=== PATIENT | female | born 2005 | race Caucasian/White ===

== ENCOUNTER 2025-03-07 08:53 | Outpatient (AMB) | payer OTHER, SELFPAY ==
--- NOTE | 2025-03-07 08:56 | MHC.PC.OV ---
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 She is transferring from [place]. Denies any significant past medical history. Denies any acute concerns today. Regulatory Consultant: She states for the last 6 months she has noticed a change in her period. She states that she has a regular cycle but a change in the amount of bleeding. She has to change a tampon every 2 hrs. She states she is bleeding through her clothes which is new for her. She states this bleeding lasts for 5 days overall, periods last 7 days. She does not have a dental coordinator. States that she has never had a pelvic exam. She denies any increased pelvic pain from baseline when she has her menses. She says that she has what she would consider typical cramping and discomfort. She is just concerned because she has never had so much bleeding and it has now been 6 months of persistent bleeding like this. She has never been sexually active. Denies any significant family history. 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 [facility] Surgical History (Updated 03/07/25 @ 09:06 by Deja Cook CMA) No pertinent past surgical history Family History (Updated 03/07/25 @ 09:09 by Deja Cook CMA) Father Asthma Maternal Grandmother HTN (hypertension) Cardiovascular disease Maternal Grandfather High cholesterol Brother Alcoholism Other Substance abuse Social History (Updated 03/07/25 @ 09:10 by Deja Cook CMA) Housing: House Alcohol intake: never Patient Tobacco Use Status: Never used Tobacco e-Cigarette/Vaping Use: Never Used Second Hand Smoke Exposure: No service: No Current occupational status: employed and student Current occupation: [employer] Current occupational exposures/hazards: No Cognitive needs: No Hearing needs: No Vision needs: No Questionnaire PHQ-9 Over the last 2 weeks, how often have you been bothered by any of the following problems? 1. Little interest or pleasure in doing things: not at all 2. Feeling down, depressed, or hopeless: not at all 3. Trouble falling or staying asleep, or sleeping too much: not at all 4. Feeling tired or having little energy: not at all 5. Poor appetite or overeating: not at all 6. Feeling bad about yourself - or that you are a failure or have let yourself or your family down: not at all 7. Trouble concentrating on things, such as reading the newspaper or watching television: not at all 8. Moving or speaking so slowly that other people could have noticed. Or the opposite - being so fidgety or restless that you have been moving around a lot more than usual: not at all 9. Thoughts that you would be better off or of hurting yourself in some way: not at all Total score: 0 Depression Screening Interpretation: Negative Depression Screening Done: Yes 93716 - PHQ-9 Billing: Yes Source: Developed by Drs. Ryan Hodge, Elinor Christiansen, Manjinder Curran and colleagues, with an educational chas from [employer]. Thrive Questionnaire Date Thrive assessed: 03/04/25 I am a: Patient What is your living situation today?: I have a steady place to live Within the past 12 months, did the food you bought not last and you didn't have the money to get more?: Never true Within the past 12 months, did you worry whether your food would run out before you got money to buy more?: Never true Do you have trouble paying for medicines?: No Do you have trouble getting transportation to medical appointments?: No Do you have trouble paying your heating and electricity bill?: No Do you have trouble taking care of your child, family member or friend?: No Do you have trouble with day-to-day activities such as bathing, preparing meals, shopping, managing finances, etc.?: No Are you currently unemployed and looking for a job?: No Are you interested in more education?: No Please select the resources that you would like help with: None Currently or been in a relationship where the following occur: No concerns reported THRIVE Score: 0 AUDIT C Alcohol Use Questionnaire (AUDIT-C) 1. How often do you have a drink containing alcohol?: Never 3. How often do you have six or more drinks on one occasion?: Never Total Score: 0 MELISSA-7 AMB Questionnaire MELISSA-7 Date MELISSA - 7 assessed: 03/07/25 Feeling nervous, anxious, or on edge: 0 = Not at all Not being able to stop or control worryin = Not at all Worrying too much about different things: 0 = Not at all Trouble relaxin = Not at all Being so restless that it is hard to sit still: 0 = Not at all Becoming easily annoyed or irritable: 0 = Not at all Feeling afraid as if something awful might happen: 0 = Not at all Total MELISAS-7 score (0-4 normal; 5-9 mild; 10-14 moderate; 15-21 severe): 0 Source: Developed by Drs. Ryan Hodge, Elnior Christiansen, Manjinder Curran and colleagues, with an educational chas from [employer]. MELISSA-7 Assessment Billing MELISSA-7 Assessment Tool: MELISSA-7 Assessment 19444 Physical exam (Primary Care) Vital Signs: Last Vital Signs Pulse 98 03/07/25 09:01 Resp 14 03/07/25 09:01 BP 114/68 03/07/25 09:01 Pulse Ox 98 03/07/25 09:01 Oxygen Delivery Method Room Air 03/07/25 09:01 BMI result Body Mass Index 24.0 Tobacco/Smoking Status: Tobacco use Status Tobacco use date assessed 03/07/25 03/07/25 08:59 Patient Tobacco Use Status Never used Tobacco 03/07/25 09:10 e-Cigarette/Vaping Use Never Used 03/07/25 09:10 PHQ-9: PHQ-9 Score PHQ-9: Total score 0 03/07/25 08:59 Depression Screening Interpretation: Negative Thrive Assessment: Date of Thrive Assessment Date Thrive assessed 03/04/25 03/07/25 08:59 Currently or been in a relationship where the following occur: No concerns reported Const Orientation/consciousness: patient oriented x3 HENMT Ears: hearing grossly normal bilaterally and TM's normal bilaterally General nose exam: No nasal polyps present Face and sinus: Yes sinuses nontender Mouth: Normal oral and palatal mucosa present Eyes Pupils: Equal, round and reactive pupils present EOM: EOMs intact bilaterally Neck Neck: Yes full ROM and Yes no lymphadenopathy Thyroid: Thyroid normal Chest Chest palpation & inspection: normal inspection of the chest Resp Auscultation: clear to auscultation bilaterally Cardio Rate: regular rate Rhythm: regular rhythm Heart sounds: S1 normal heart sound present and S2 normal heart sound present Peripheral pulses: Peripheral pulses 2+ throughout GI Other: Soft, nontender Auscultation: normal bowel sounds Rectal Exam - Female: deferred General: Yes no CVA tenderness Back/Spine/Pelvis Other: Nontender Back: no CVA tenderness Skin General skin exam: no rashes or lesions noted Neuro General: patient oriented x3, gait normal, CN's II-XI intact bilaterally and deep tendon reflexes 2+ bilaterally Cranial nerves: Yes Equal, round and reactive pupils present Motor exam (neuro): 5/5 motor strength present throughout Sensory Exam: double simultaneous stimulation for sensation normal Coordination: [id number] test normal and Romberg test negative Extrem General: Yes normal to inspection and Yes full ROM Psych Affect: normal affect Attitude: cooperative Thought process: Normal thought process present Thought content: Normal thought content present Insight: Good insight present (Psych) Judgement: Good judgement present (Psych) Coding Level of Care Code New Pt Prev Care 18-39yr([id number] Diagnoses Encounter for routine history and physical examination Z00.00 Menorrhagia with regular cycle N92.0 Additional Codes MELISSA-7 Assessment Billing - MELISSA-7 Assessment Tool: MELISSA-7 Assessment 93397 ([id number]) PHQ-9 - 81796 - PHQ-9 Billing: Yes ([id number]) Assessment & Plan Assessment & Plan (1) Encounter for routine history and physical examination: Code(s): Z00.00 - Encounter for general adult medical examination without abnormal findings Plan: Health maintenance reviewed. Labs ordered. We will follow up pending test results. (2) Menorrhagia with regular cycle: Code(s): N92.0 - Excessive and frequent menstruation with regular cycle Category: Medical Plan: Labs and ultrasound ordered. Referral to Gynecology. Orders: Orders US pelvic and transvaginal Today N92.0 - Excessive and frequent menstruation with regular cycle TSH reflex Free T4 Today N92.0 - Excessive and frequent menstruation with regular cycle, Z00.00 - Encounter for general adult medical examination without abnormal findings Comprehensive [place]. Panel Fast Today N92.0 - Excessive and frequent menstruation with regular cycle, Z00.00 - Encounter for general adult medical examination without abnormal findings Vitamin B12 and Folate Today N92.0 - Excessive and frequent menstruation with regular cycle, Z00.00 - Encounter for general adult medical examination without abnormal findings IRON PROFILE Today N92.0 - Excessive and frequent menstruation with regular cycle, Z00.00 - Encounter for general adult medical examination without abnormal findings Ferritin Today N92.0 - Excessive and frequent menstruation with regular cycle, Z00.00 - Encounter for general adult medical examination without abnormal findings Complete Blood Count Auto Diff Today N92.0 - Excessive and frequent menstruation with regular cycle, Z00.00 - Encounter for general adult medical examination without abnormal findings Lipid Panel Today N92.0 - Excessive and frequent menstruation with regular cycle, Z00.00 - Encounter for general adult medical examination without abnormal findings Referrals [facility] Referral N92.0 - Excessive and frequent menstruation with regular cycle, Z01.419 - Encounter for gynecological examination (general) (routine) without abnormal findings
[2025-03-07 09:01] VITALS: BP 114/68; PULSE 98; RESP 14; O2SAT 98; BMI 24.0
--- OUTSIDE RECORDS SUMMARY | 2025-03-07 09:18 | XMS_ITS | Clinical Summary ---
Author Organization [address] [facility] Address [address] [place] [address] Phone Care Team Providers Care Mainspring Former Name Role Phone Katt Cho MD Primary Care Prov ider Surgical History Surgery Date Site/Laterality Comments WISDOM TOOTH EXTRACTION PROCEDURE: HISTORICAL WISDOM TEETH EXTRACTION Medical History Medical History Date Comments Vascular birthmark DX:Vascular b irthmark; COMMENT: right wrist Family History Medical History Relation Name Comments Allergies Father FOOD; asthma Diabetes Maternal Grandfather htn Relation Name Status Comments Brother Alive 05/17/02 MOISES Father Alive 05/16/70 Maternal Grandfather Alive Maternal Grandmother Alive Mother Alive 10/09/74 Paternal Grandfather Alive Paternal Grandmother Alive Sister Alive Leslie Social History Tobacco Use Types Packs/Day Years Used Date Smoking Tobacco: Never Alcohol Use Standard Drinks/Week Comments No 0 (1 standard drink = 0.6 oz pur e alcohol) Comments Unknown Sex and Gender Information Value Date Recorded Sex Assigned at Not on file Legal Sex Female 11:40 PM EST Gender Identity Not on file Sexual Orientation Not on file Obstetrics History Last Filed Vital Signs Vital Sign Reading Time Taken Comments Blood Pressure 108/72 11/13/2022 1:46 PM EST Pulse 76 11/13/2022 1:46 PM EST Temperature - - Respiratory Rate - - Oxygen Saturation - - Inhaled Oxygen Concentration - - Weight 69.3 kg (152 lb 12.8 oz) 11/13/2022 1:46 PM EST Height 174 cm (5' 8.5 ) 11/13/2022 1:46 PM EST Body Mass Index 22.9 11/13/2022 1:46 PM EST Plan of Treatment Health Maintenance Due Date Last Done Comments Gonorrhea/Chlamydia Screening 2004 Hepatitis A Vaccines (2 of 2 - 2-dose series) 10/11/2019 04/10/2019 Meningococcal B Vaccine (1 of 2 - Standard) 2020 Depression Screening 09/06/2022 HIV Screening 09/06/2022 Hepatitis C Screening 09/06/2022 Social Influencers of Health Screening 09/06/2022 Annual Well Child Visit (3-21 years old) 11/13/2023 11/13/2022, 09/19/2021, 07/30/2020, Additional history exists COVID-19 Vaccine ( season) 2024 09/07/2022, 09/29/2021, 01/30/2021, Additional history exists DTaP,Tdap,and Td Vaccines (7 - Td or Tdap) 02/04/2026 02/05/2016, 12/26/2008, 03/25/2006, Additional history exists Pneumococcal Vaccine: Pediatrics (0 to 5 Years) and At-Risk Patients (6 to 64 Years) Completed 12/17/2005, 09/30/2005, 06/17/2005, Additional history exists HIB Vaccines Completed 03/25/2006, 06/04, 06/17/2005, Additional history exists IPV Vaccines Completed 12/26/2008, 06/04, 06/17/2005, Additional history exists MMR Vaccines Completed 12/26/2008, 03/25/2006 Varicella Vaccines Completed 12/26/2008, 12/17/2005 HPV Vaccines Completed 10/16/2016, 04/03, 02/05/2016 Meningococcal ACWY Vaccine Completed 09/19/2021, Hepatitis B Vaccines Completed 04/24/2024, 06/17/2005, 04/15/2005, Additional history exists Influenza Vaccine Completed 05/22/2024, , 11/13/2022, Additional history exists RSV Immunization Patients Under 20 months Aged Out No longer eligible based on patient's age to complete this topic Insurance [facility] MEDICAID ADVANTAGE Care Teams Mainspring Former Relationship Specialty Start Date End Date Katt Cho MD [address] [place] [id number] PCP - General Pediatrics 10/20/24
== END 2025-03-07 09:30 | disposition home or self-care (01) ==
LOC: HO.HMCFM 08:54
PROVIDERS: PCP Physician Assistant; Visit Provider Physician Assistant
DX: Z00.00 Encounter for general adult medical examination without abnormal findings (principal); N92.0 Excessive and frequent menstruation with regular cycle

== ENCOUNTER → 2025-03-07 08:53 | Outpatient (BNVA) | payer OTHER, SELFPAY | PROVIDERS: PCP Physician Assistant; Visit Provider Physician Assistant | DX: Z00.00 Encounter for general adult medical examination without abnormal findings (principal); N92.0 Excessive and frequent menstruation with regular cycle | CPT/HCPCS: 96127 ==

== ENCOUNTER 2025-03-07 09:40 | Outpatient (REF) | payer OTHER, SELFPAY ==
[2025-03-07 11:14] LABS: MANUAL DIFF FLAG NO
[2025-03-07 11:34] LABS: Basophils Percent Auto 0.4 % (0-2); Eosinophils Absolute Auto 0.1 X10*3/uL (0.0-0.4); Eosinophils Percent Auto 2.2 % (0-4); Hematocrit 38.2 % (37.0-47.0); Hemoglobin 12.6 g/dl (12.0-16.0); Imm Gran Abs Auto 0.01 X10*3/uL (0.00-0.03); Imm Gran Pct Auto 0.2 % (0.0-0.4); Lymphocytes Absolute Auto 1.5 X10*3/uL (1.2-4.9); Lymphocytes Percent Auto 26.6 % (20-40); Mean Corpuscular Hemoglobin 30.9 pg (27.0-33.0); Mean Corpuscular Volume 93.6 fL (80.0-98.0); Mean Platelet Volume 9.3 fL (9.4-12.3); Monocytes Absolute Auto 0.6 X10*3/uL (0.1-1.2); Neutrophils Absolute Auto 3.4 x10*3/uL (2.0-8.3); Neutrophils Percent Auto 60.6 % (45-73); Platelet Count 238 X10*3/uL (160-400); Red Blood Count 4.08 X10*6/uL (4.20-5.50); Red Cell Distribution Width 12.4 % (11.0-16.0); White Blood Count 5.5 X10*3/uL (4.8-10.8)
[2025-03-07 13:00] LABS: Folate 8.8 ng/mL (> or = 4.0); Vitamin B12 312 pg/mL (200-900)
[2025-03-07 15:03] LABS: Alanine Aminotransferase 13 U/L (0-31); Albumin Level 4.6 g/dL (3.5-5.0); Alkaline Phosphatase 39 U/L (39-117); Anion Gap 8 (12-20); Aspartate Amino Transferase 17 U/L (5-31); Bilirubin Total 0.5 mg/dL (0.0-1.0); Blood Urea Nitrogen 8 mg/dL (9-16); Calcium 9.7 mg/dL (8.4-10.2); Carbon Dioxide 27 mmol/L (22-29); Chloride 107 mmol/L (96-108); Cholesterol 146 mg/dL (<200); Estimated Glomerular Filt Rate > 60; Ferritin 15 ng/mL (10-122); Glucose Fasting 86 mg/dL (60-99); HDL Cholesterol 67 mg/dL (>40); Iron 61 mcg/dL (30-160); LDL Cholesterol Calculated 66 mg/dL (<100); Percent Iron Saturation 19 % (15-50); Potassium 4.1 mmol/L (3.3-5.1); Sodium 138 mmol/L (135-145); TSH reflex Free T4 1.23 uIU/mL (0.32-4.0); Total Iron Binding Capacity 318 mcg/dL (228-428); Total Protein 7.1 g/dL (6.5-8.0); Triglycerides 67 mg/dL (<150); Unsaturated Iron Binding 257 ug/dL
== END 2025-03-07 09:41 | disposition home or self-care (01) ==
LOC: HO.WFDLDS 09:40
PROVIDERS: Visit Provider Physician Assistant
DX: Z00.00 Encounter for general adult medical examination without abnormal findings (principal); N92.0 Excessive and frequent menstruation with regular cycle; Z13.6 Encounter for screening for cardiovascular disorders
CPT/HCPCS: 36415; 80053; 80061; 82607; 82728; 82746; 83540; 84443; 85025

== ENCOUNTER 2025-04-11 13:47 | Outpatient (REF) | payer BC, SELFPAY ==
--- NOTE | ~2025-04-11 | US_ITS ---
CLINICAL HISTORY: N92.0 - Excessive and frequent menstruation with regular cycle Ultrasound of the female pelvis Comparison: None provided Technique: Grayscale ultrasound with assistance of color Doppler. Transabdominal scanning performed for overall anatomy. Transvaginal scanning performed for better anatomic delineation. Findings: Anteverted uterus measures 6.7 x 3.3 x 4.4 cm. Unremarkable myometrium. Normal endometrium, 3 mm in thickness. Normal cervix. Normal right ovary, 3.1 x 1.9 x 1.5 cm. No abnormal vascular flow. Normal left ovary, 4.4 x 1.6 x 2.3 cm. No abnormal vascular flow. No free fluid. Impression: Normal exam. This document has been electronically signed by: Bethany Olson MD on 04/12/2025 10:53:27
--- OUTSIDE RECORDS SUMMARY | 2025-04-11 14:36 | XMS_ITS | Data Portability ---
Author Organization [facility] [id number] Address [address] [place] [address] Assessment No assessment recorded. Plan of Treatment Reminders Order Date Submit Date Provider Last Modified By Organization Details Last Modified Time Details Appointments None record ed. Lab None record ed. Referral None record ed. Procedures None record ed. Surgeries None record ed. Imaging None record ed. Medication Orders None record ed. Patient TargetsNo targets recorded. Patient InstructionsNo instructions recorded. Reason for Referral None Reported. Procedures Surgical History Date Name Laterality Status Provider Name and Address Organization Details Recorded Time OC- Physical completed Gely Alatorre [facility] 05/18/2024 12:27:35 Imaging Results None recorded. Procedure Notes None recorded. Medical Equipment None Reported. Medications Name Sig Start Date Stop Date Status Note LastModified by Organization Details LastModified Time ibuprofen 800 mg tablet TAKE 1 TABLET ORAL THE NIGHT BEFORE PRODEDURE AND TAKE 1 TABLET ORAL 1 HOUR PRIOR TO PROCEDURE active Not Available Not Available No t Available amoxicillin 500 mg tablet TAKE 1 TABLET BY MOUTH THREE TIMES A DAY active Not Available Not Available No t Available Vitals None Recorded Social History None recorded. Functional Status None recorded. Mental Status None recorded. Family History Nothing Reported. Medical History No medical history recorded. Gynecological HistoryNo gynecological history recorded. Obstetrics History GPAL:G 0 P 0 0 0 0 Past Encounters Encounter ID Performer Location Encounter Start Date Encounter Closed Date Diagnosis/Indication Diagnosis SNOMED-CT Code Diagnosis ICD10 Code Diagnosis Note [id number] [facility] [place] [address] 06/15/2020 08:18:46 06/15/2020 08:42:29 [id number] Jose Ramos NP [facility] [address] [address] 05/18/2024 11:18:49 05/18/2024 12:48:06 History and physical examination, [facility] [id number] Z02.0 This physical does not replace the annual physical to be performed by your PCP. There may be additional screening tests that they will perform that we do not in the urgent care setting.Fa ilure to follow up as recommende d may result in significan t adverse health consequenc es. If your symptoms worsen or you develop new symptoms that concern you, go to the emergency department for further evaluation . 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
--- OUTSIDE RECORDS SUMMARY | 2025-04-11 14:36 | XMS_ITS | Encounter Summary ---
Author Organization [facility] Address [address] [place] [address] Care Team Providers Care Budget Coordinator Name Role Phone Claudia Monte DO Primary Care Provider Katt Alberto MD Primary Care Prov ider Encounter Details Date Type Department Care Team Description 04/10/[address] [address] Joselin Sahu, BALWINDER [address] [place] [address] Social History Tobacco Use Types Packs/Day Years Used Date Smoking Tobacco: Never Alcohol Use Standard Drinks/Week Comments No 0 (1 standard drink = 0.6 oz pur e alcohol) Alcohol Habits Answer Date Recorded How often do you have a drink containing alcohol ? Never 07/30/2020 How many drinks containing a lcohol do you have on a typical day when you are drinking? Not asked How often do you have six or more drinks on one occasion? Not asked Sex Assigned at Date Recorded Not on file documented as of this encounter Plan of Treatment Not on file documented as of this encounter Visit Diagnoses Not on filedocumented in this encounter Care Teams Budget Coordinator Relationship Specialty Start Date End Date Claudia Monte DO PCP - General Internal Medicine 09/21/22 04/19/24 Katt Cho MD [address] [place] [id number] PCP - General Pediatrics 04/20/24 documented as of this encounter
--- OUTSIDE RECORDS SUMMARY | 2025-04-11 14:36 | XMS_ITS | Clinical Summary ---
Author Organization [address] [facility] Address [address] [place] [address] Phone Care Team Providers Care Syrup Mixer Assistant Name Role Phone Unavailable Primary Care Provider Unavailabl e Encounters Date Type Department Care Team Description 03/07/2025 Telephone [facility] [address] [place] [phone] Katt Cho MD medical records (Medical records release faxed to him, copy scanned into chart) from Last 3 Months Surgical History Surgery Date Site/Laterality Comments WISDOM [...] 07/30/2020, Additional history exists COVID-19 Vaccine ( - season) 2024 09/07/2022, 09/29/2021, 01/30/2021, Additional history exists Influenza Vaccine (#1) 2025 , 08/25/2023, 11/13/2022, Additional history exists DTaP,Tdap,and Td Vaccines (7 - Td or Tdap) 02/04/2026 02/05/2016, 12/26/2008, 03/25/2006, Additional history exists Pneumococcal Vaccine: Pediatrics (0 to 5 Years) and At-Risk Patients (6 to 49 Years) Completed 12/17/2005, 09/30/2005, 06/17/2005, Additional history exists HIB Vaccines Completed 03/25/2006, 06/04, 06/17/2005, Additional history exists IPV Vaccines Completed 12/26/2008, 06/04, 06/17/2005, Additional history exists MMR Vaccines Completed 12/26/2008, 03/25/2006 Varicella Vaccines Completed 12/26/2008, 12/17/2005 HPV Vaccines Completed 10/16/2016, 04/03, 02/05/2016 Meningococcal ACWY Vaccine Completed 09/19/2021, Hepatitis B Vaccines Completed 04/24/2024, 06/17/2005, 04/15/2005, Additional history exists RSV Immunization Patients Under 20 months Aged Out No longer eligible based on patient's age to complete this topic Insurance [employer] MEDICAID ADVANTAGE [address] [place] [address]
== END 2025-04-11 13:48 | disposition home or self-care (01) ==
LOC: HO.HMGCX 13:47
PROVIDERS: PCP Physician Assistant; Visit Provider Physician Assistant
DX: N92.0 Excessive and frequent menstruation with regular cycle (principal)
CPT/HCPCS: 76830; 76856

== ENCOUNTER → 2025-04-11 13:52 | Outpatient (BNV) | payer BC, SELFPAY | PROVIDERS: PCP Physician Assistant; Visit Provider Radiology Diagnostic Radiology | DX: N92.0 Excessive and frequent menstruation with regular cycle (principal) | CPT/HCPCS: 76830; 76856 ==

== ENCOUNTER 2025-05-07 13:25 | Outpatient (REF) | payer BC, SELFPAY ==
--- OUTSIDE RECORDS SUMMARY | 2025-05-07 13:42 | XMS_ITS | Clinical Summary ---
Author Organization [address] [facility] Address [address] [place] [address] Phone Care Team Providers Care Stripper And Printer Name Role Phone Unavailable Primary Care Provider Unavailabl e Encounters Date Type Department Care Team Description 03/07/2025 Telephone [facility] [address] [place] [phone] Katt Cho MD medical records (Medical records [...] Vaccine (1 of 2 - Standard) 2020 HIV Screening 09/06/2022 Hepatitis C Screening 09/06/2022 Social Influencers of Health Screening 09/06/2022 Annual Well Child Visit (3-21 years old) 11/13/2023 11/13/2022, 09/19/2021, 07/30/2020, Additional history exists COVID-19 Vaccine ( - season) 2024 09/07/2022, 09/29/2021, 01/30/2021, Additional history exists Depression Screening 10/04/2024 Influenza Vaccine (#1) 2025 , 08/25/2023, 11/13/2022, [...] Insurance [employer] MED[employer] ADVANTAGE [address] [place] [address]
[2025-05-10 05:19] LABS: TS Negative Control Passed; TS Panel A 0; TS Panel B 0; TS Positive Control Passed; TSpotTB Negative (Negative)
== END 2025-05-07 13:26 | disposition home or self-care (01) ==
LOC: HO.WFDLDS 13:25
PROVIDERS: Visit Provider Physician Assistant
DX: Z11.1 Encounter for screening for respiratory tuberculosis (principal)
CPT/HCPCS: 36415; 86481